=== PATIENT | female | born 2000 | race Two or more races ===

== ENCOUNTER 2020-06-24 05:47 | Emergency (ER) | payer OTHER ==
[~2020-06-24] VITALS: Ht 160 cm; Wt 63.1 kg
--- NOTE | 2020-06-24 06:04 | NUR ---
PT AMBULATES WITH STEADY GAIT WITH PARTNER TO ROOM FROM TRIAGE. DANISH SCHMIDT, AT FOR PT HISTORY AND ASSESSMENT. CALL LIGHT IS WITHIN REACH. PT ATTACHED TO VS MACHINES AT THIS TIME.
[2020-06-24 06:29] LABS: BASOPHILS # (AUTO) 0.04 x10^3/uL (0-0.1); BASOPHILS % (AUTO) 1 % (0-1); EOSINOPHILS % (AUTO) 1 % (1-7); LYMPHOCYTES % (AUTO) 21 % (22-44); MD NO; MEAN CORPUSCULAR HEMOGLOBIN 32.7 pg (27.0-34.8); MEAN CORPUSCULAR HGB CONC 34.1 g/dL (32.4-35.8); MEAN PLATELET VOLUME 9.1 fL (7.4-10.4); MONOCYTES # (AUTO) 0.53 x10^3/uL (0.2-0.8); MONOCYTES % (AUTO) 7 % (2-9); NEUTROPHILS # (AUTO) 5.23 x10^3/uL (1.8-6.8); NEUTROPHILS % (AUTO) 70 % (42-75); PLATELET COUNT 189 x10^3/uL (130-400); RED BLOOD COUNT 4.33 x10^6/uL (3.82-5.3); RED CELL DISTRIBUTION WIDTH 12.4 % (9.6-15.2)
[2020-06-24 06:39] LABS: ALBUMIN 3.7 g/dL (3.4-5.0); ANION GAP 5 mmol/L (5-15); CALCIUM 8.5 mg/dL (8.5-10.1); CHLORIDE 113 mmol/L (98-107); CREATININE 0.84 mg/dL (0.55-1.02)
[2020-06-24 06:48] LABS: MICROSCOPIC AUTO
--- NOTE | 2020-06-24 06:50 | NUR ---
REPORT OF PT TO ALY SINCLAIR. ALL QUESTIONS ANSWERED.
[2020-06-24 07:03] VITALS: BP 127/67
--- NOTE | 2020-06-24 07:05 | NUR ---
REPORT FROM DALI LU, PT RESTING ON GURNEY AT THIS TIME, FRIEND AT BEDSIDE, JAI SPEARS NOTED
== END 2020-06-24 08:14 | disposition home or self-care (01) ==
LOC: ED 06:23
DX: O03.9 Complete or unspecified spontaneous abortion without complication (principal); R11.0 Nausea; R10.30 Lower abdominal pain, unspecified; R10.2 Pelvic and perineal pain
CPT/HCPCS: 36415; 76801; 80048; 81001; 82040; 84702; 85025; 86901; 99284

== ENCOUNTER → 2021-05-27 | Outpatient (CLI) | payer OTHER | END | disposition home or self-care (01) | LOC: CARD 14:12 | PROVIDERS: ATTEND Nurse Practitioner | DX: G40.909 Epilepsy, unspecified, not intractable, without status epilepticus (principal) | CPT/HCPCS: 95819 ==